=== PATIENT | female | born 1965 | race Caucasian/White ===

== ENCOUNTER 2017-09-14 05:36 | Day surgery (SDC) | payer BC, OTHER ==
[~2017-09-14] VITALS: Ht 157.5 cm; Wt 65.8 kg
--- NOTE | ~2017-09-14 | PATH ---
[facility] [place] [address] PATHOLOGY RPT PROCEDURE Name: SENA LUO Room #: DEP [facility].#: [id number] Admission: 09/14/17 Date of : 69 Discharge: 09/14/17 Report #: [id number] Path Case #: [id number] [facility] Accession Number: [id number] . 01 Material submitted: . RIGHT AXILLARY CYST . 01 Clinical history: . Right axillary cyst . 02 Diagnosis: Skin with underlying soft tissue, "right axillary cyst excision": - Hidradenitis suppurativa. - Underlying panniculitis. - The inflammation extends focally to the inked lateral margins. - A well defined cyst is not identified. (SHA:; 09/17/17) QRQ/09/17/2017 . 02 Electronically signed: . Cory Iverson MD, Pathologist NPI- [id number] . 01 Gross description: . The specimen is received in formalin, labeled "Sena Luo, right axillary cyst" and consists of an ellipse of day skin measuring 3.7 x 1.5 x 0.3 with underlying yellow-orange soft tissue measuring 3.6 x 2.5 x 1.4 cm. It is inked and sectioned to reveal a possible cystic structure measuring 1.0 x 0.4 cm with surrounding fat necrosis measuring up to 2.0 cm. Strip Deburrer sections are submitted in A1-A3. (SDY; 09/15/2017) SYU/SYU . 02 Pathologist provided ICD-10: L73.2 . 02 CPT . 063722 Performed at: [address], [place], [place] [id number] MD Jaimn Shepard MD Phone: [phone] Performed at: [address] [facility] [address] [place] [id number] MD Sergio Preciado MD Phone: [phone]
--- NOTE | ~2017-09-14 | O ---
[facility] [place] [address] OPERATIVE REPORT Name: RED DONALDSON Room #: 150-5 [facility]#: [id number] Admission: 09/14/17 Attend Phys: Carrington Pinedo MD Discharge: Date of : 69 Report #: [id number] THIS REPORT FOR: //name// CC: Carrington Silva DATE OF SERVICE: 09/14/2017 PREOPERATIVE DIAGNOSIS: Recently infected cyst in the right axilla. POSTOPERATIVE DIAGNOSIS: Recently infected cyst in the right axilla. PROCEDURES PERFORMED: Excision of infected cyst in the right axilla, which contains 2 distinct nodules. ANESTHESIA: IV sedation, local 0.25% Marcaine. ESTIMATED BLOOD LOSS: 5 mL. COMPLICATIONS: None. DESCRIPTION OF PROCEDURE: With the patient under IV sedation, the right axilla was prepped and draped in sterile fashion. Timeout was performed. A 0.25% Marcaine was injected around the cyst. The more superficial one has discoloration from recent infection. She is almost at the end of her antibiotic course. An ellipse was drawn around the cyst. This is about greater 2 cm in width. Incision was carried down through the skin. The normal subcutaneous fat was found. The plane was dissected around two nodular areas and did not get into the nodules. Both nodules were excised. Specimen sent to pathology. Wound was irrigated. Subcutaneous tissue was brought together with 4-0 PDS. Skin was closed with 5-0 PDS running subcuticular fashion. Dermabond, 4 x 4, OpSite used for dressing. The patient tolerated procedure well. By: [id number] Carrington Pniedo MD /nt
[~2017-09-14 05:36] MED LIST: BACTRIM DS TAB1 EACH PO; CABERGOLINE 0.0.5 M1 PO; CALCIUM 500 +1 EAC5 PO; CELEXA10 MG PO; CHROMIUM400 MCG PO; FISH OIL 1,001000 M2 PO; MULTIVITAMINS PO; SPIRONOLACTONE25 M1 PO
[2017-09-14 13:18] LABS: CALCIUM 9.5 mg/dL (8.5-10.1); CREATININE 0.8 mg/dL (0.6-1.0); POTASSIUM 4.6 mmol/L (3.5-5.1)
[2017-09-14] MEDS ORDERED: NORCO 5-325 TA1 EACH PO (15:38)
== END 2017-09-14 17:00 | disposition home or self-care (01) ==
LOC: TBA 05:36 → OR 05:36
PROVIDERS: Surgery
DX: L73.2 Hidradenitis suppurativa (principal); M79.3 Panniculitis, unspecified; F32.9 Major depressive disorder, single episode, unspecified; J45.909 Unspecified asthma, uncomplicated; Z98.890 Other specified postprocedural states; Z79.899 Other long term (current) drug therapy
CPT/HCPCS: 50010; 50101; 50386; 50417; 54118; 56524; 56525; 56526; 70005